=== PATIENT | female | born 1970 | race Caucasian/White ===

== ENCOUNTER 2019-04-15 14:02 | Observation (INO) | payer MEDICAID, SELFPAY ==
[2019-04-15 14:30] VITALS: BP 123/72; PULSE 74; RESP 17; TEMP 36.9; O2SAT 96
[2019-04-15 14:36] VITALS: BMI 28.3
[2019-04-15 14:53] VITALS: BMI 28.3
[2019-04-15 15:02] VITALS: PULSE 80
--- NOTE | 2019-04-15 15:35 | ECHOD_ITS ---
Reason For Study: TIA/CVA Procedure This was a 2D Doppler, Color Flow transthoracic echocardiogram. Exam performed portable in patient room. Left Ventricle Normal size and thickness. The estimated ejection fraction is 60 %. No evidence for diastolic dysfunction. No regional wall motion abnormalities noted. Right Ventricle Normal RV size. Normal systolic function. Atria Normal left atrium. Normal right atrium. No doppler evidence for ASD. Bubble contrast study negative for right to left interatrial shunt. Mitral Valve There is no mitral valve stenosis. No mitral valve insufficiency. Tricuspid Valve There is no tricuspid stenosis. Unable to estimate RV systolic pressure due to inadequate jet, pulmonary artery pressure probably normal. Aortic Valve Trisinus/trileaflet aortic valve. There is no aortic stenosis. No aortic valve insufficiency. Pulmonic Valve There is no pulmonic valvular stenosis. No pulmonic valve insufficiency. Great Vessels Normal aortic root. Pericardium/Pleural No pericardial effusion. Medication Performed a rapid injection of agitated mix of 9 cc saline and 1cc air to assess for atrial septal defect. MMode/2D Measurements & Calculations LVIDd: 3.7 cm IVSd: 0.71 cm Ao root diam: 2.9 cm LVIDs: 2.6 cm LVPWd: 0.90 cm RVDd: 3.2 cm FS: 30.1 % LAV(MOD-bp): 25.9 ml LVAd ap4: 20.6 cm2 SV(MOD-sp4): 33.3 ml LAV(MOD-bp) Indexed: 14.4 ml/m2 EDV(MOD-sp4): 52.7 ml LAV(MOD-sp2): 24.0 ml EDV(sp4-el): 54.4 ml LAV(MOD-sp4): 24.8 ml LVAs ap4: 11.3 cm2 ESV(MOD-sp4): 19.4 ml ESV(sp4-el): 19.7 ml EF(MOD-sp4): 63.2 % EF(sp4-el): 63.7 % SV(sp4-el): 34.6 ml LA A4 area: 11.5 cm2 LA dimension(2D): 3.1 cm RA A4 area: 7.6 cm2 Time Measurements MV dec time: 0.24 sec Doppler Measurements & Calculations MV E max yovani: 83.7 cm/sec Lat Peak E' Yovani: 13.6 cm/sec Med Peak E' Yovani: 10.2 cm/sec MV A max yovani: 87.5 cm/sec E/E' lat: 6.2 E/E' med: 8.2 MV E/A: 0.96 Ao V2 max: 150.6 cm/sec LV V1 max: 143.1 cm/sec PA V2 max: 108.3 cm/sec Ao max P.1 mmHg LV V1 max P.2 mmHg TR max yovani: 252.7 cm/sec TR max P.5 mmHg Interpretation Summary The estimated ejection fraction is 60 %. No evidence for diastolic dysfunction. No doppler evidence for ASD. Bubble contrast study negative for right to left interatrial shunt. Ordering Physician: Madi Watkins Referring Physician: DONAVON ARIAS Performed By: Amaya Maki RDCS
--- NOTE | 2019-04-15 15:35 | MRI_ITS ---
STUDY: MRI BRAIN WITHOUT CONTRAST REASON FOR EXAM: Female, 48 years old. CVA TECHNIQUE: Standardized multiplanar fat and water weighted pulse sequences were obtained. COMPARISON: None. FINDINGS: Normal size of the ventricles and extra-axial spaces for the patient's age. Normal white matter tracts of the supratentorial brain. Normal bilateral basal ganglia. Normal thalami. There is no extra-axial fluid accumulation. Normal flow voids within the major intracranial circulation suggesting patency by spin echo criteria. Normal sella turcica, pituitary gland, infundibular stalk, optic chiasm and hypothalamus. Normal tectal plate and pineal gland. Normal midbrain, filomena and medulla. Normal cerebellum. Normal basal cisterns. Normal bilateral temporal bones. Normal bilateral internal auditory canals. No demonstrated orbital abnormality, within the constraints of a routine brain study. Normal visualized paranasal sinuses. Normal calvarium and skull base. Normal visualized soft tissue structures. Normal visualized upper cervical spine. MRI/Brain without Contrast IMPRESSION: Normal unenhanced MRI of the brain. Electronically Signed: Michael Garrison MD at 21:18 EDT , Service support ,
--- NOTE | 2019-04-15 15:36 | PCM.HP.STD ---
Problem List (1) Type 2 diabetes mellitus Status: Chronic (2) Hypothyroidism Status: Chronic (3) Hypertension Status: Chronic History of Present Illness Date of Admission: 04/15/19 Chief Complaint: Left-sided weakness. The patient is a 48 year old F who presents from [place] in hospital due to recurrent left-sided weakness and numbness. Patient reports on Saturday and Saturday morning she woke up and noticed her left upper extremity and left lower extremity was numb and she could not lift them on her own. She states this lasted a few hours and then resolved on its own. She had no symptoms on Saturday this week. This morning she woke up and again had left-sided weakness and numbness. She reports her blood sugar was 60 at that time and her helped her drink some chocolate milk. She states her symptoms persisted despite drinking milk. She states given the recurrence of symptoms, she called the squad. She states her symptoms had resolved by the time the squad picked her up and she was able to walk out to EMS. She denies speech changes, vision changes. She is currently symptom-free. Denies history of stroke. She has a past medical history of type 2 diabetes mellitus, hypertension, hyperlipidemia, hypothyroidism. Past Medical History Past Medical History (Chronic Problems): Chronic Problems Type 2 diabetes mellitus (Chronic) Hypothyroidism (Chronic) Hypertension (Chronic) Allergies cream cheese Allergy (Uncoded 04/15/19 14:51) Hives Home Medications: Ambulatory Orders Medication Instructions Recorded Acetaminophen [8Hr Arthritis Pain 650 mg PO BID PRN 04/15/19 Relief] Cyclobenzaprine HCl 10 mg PO TID PRN 04/15/19 Gabapentin [Neurontin] 300 mg PO TID PRN PRN 04/15/19 Insulin Aspart [Novolog Vial] 15 units SUBCUT TIDCM 04/15/19 Insulin Glargine,Hum.rec.anlog 30 unit SUBCUT 2100 04/15/19 [Basaglar Kwikpen U-100] Levothyroxine [Synthroid] 125 mcg PO DAILY 04/15/19 Lisinopril 5 mg PO DAILY 04/15/19 Rosuvastatin Calcium [Crestor] 10 mg PO QHS 04/15/19 Surgical History: - - Hysterectomy, cholecystectomy, naval cyst removal, lung stapling secondary to recurrent pneumothorax. 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 Lives: Spouse/ Significant Other Smoking Status: Current every day smoker Tobacco Use: Cigarettes Alcohol: None Drugs: None - *Family History Maternal History Items: Heart Disease - Status post CABG Paternal History Items: - - from colon cancer Review of Systems Constitutional: Denies: Chills, Fever, Weight Change HEENT: Denies: Head Aches, Sinus Congestion, Sinus Drainage Cardiovascular: Denies: Chest Pain, Palpitations Respiratory: Denies: Cough, Shortness of breath at rest, Sputum production Gastrointestinal: Denies: Abdominal Pain, Nausea, Vomiting Genitourinary: Denies: Dysuria Musculoskeletal: Denies: Joint Pain, Joint Tenderness Skin: Denies: Rash, Wounds Neurological: Reports: Numbness, - - Intermittent left-sided weakness and numbness.. Denies: Double vision, Slurred speech, Tingling Psychiatric: Denies: Anxiety, Depression, Homicidal Ideations, Suicidal Ideations Hematologic/ Lymphatic: Denies: Easy Bruising, Easy Bleeding VTE Information - Inpt Only VTE Present on Admission: No VTE Mechan Device Prophylaxis: SCD's VTE Pharm Prophylaxis ordered?: No Reason prophylaxis not ordered:: Treatment Not Indicated - Physical Exam General: Alert, Oriented x3, Cooperative HEENT: Atraumatic, PERRLA, EOMI, Normocephalic Neck: Supple, No JVD, Negative Carotid Bruits Lungs: Clear to auscultation, Normal air movement Cardiovascular: Regular rate, Regular Rhythm, Normal S1, Normal S2, No murmurs Abdomen: Bowel Sounds Present, Soft, Non Tender, Non-Distended Extremities: No clubbing, No cyanosis, No edema, Capillary Refill Less than 3 Seconds Skin: No rashes, No breakdown Musculoskeletal: No Tenderness to Palpation of Joints or Extremities Neurological: Cranial nerves II-XII grossly intact, Neuro grossly intact Psych/Mental Status: Normal Affect, Appropriate Vital Signs Temp Pulse Resp BP Pulse Ox 98.4 F 80 17 123/72 H 96 04/15/19 14:30 04/15/19 15:02 04/15/19 14:30 04/15/19 14:30 04/15/19 14:30 Oxygen Delivery Method Room Air Weight: 165 lb Body Mass Index (BMI) 28.3 Assessment/Plan 1. Intermittent left-sided weakness, rule out CVA-CT of head at outside facility reported to be normal. Troponin negative. PT/OT/ST. Obtain MRI of brain, MRA of head and neck. Lipid panel in a.m. Obtain echocardiogram. Neuro consult. Aspirin, statin. 2. Type 2 diabetes [id number] ACHS with sliding scale insulin. Continue home Lantus regimen. 3. Hypertension-stable, continue home lisinopril regimen. 4. Hyperlipidemia-continue statin. 5. Hypothyroidism-continue Synthroid regimen. TSH at outside facility 0.18. Check T4. May need Synthroid decreased pending T4. 6. Tobacco dependence-current 1 PPD smoker. Encouraged cessation. DVT prophylaxis-SCDs This patient was seen by DONTE Holland under the supervision of Dr. Watkins.
[2019-04-15 15:37] VITALS: BMI 28.3
--- NOTE | 2019-04-15 16:02 | MRI_ITS ---
STUDY: MRA NECK WITHOUT CONTRAST REASON FOR EXAM: Female, 48 years old. CVA TECHNIQUE: Source images were obtained, MIPs were performed. The study was performed unenhanced. COMPARISON: None. FINDINGS: RIGHT CAROTID ARTERIES: Normal right common carotid artery (CCA). Normal right common carotid bulb. Normal origin of the right internal carotid (ICA) artery without a hemodynamically significant stenosis. Normal visualized cervical portion of the right internal carotid artery. Normal origin of the right external carotid artery (ECA). LEFT CAROTID ARTERIES: Normal left common carotid artery (CCA). Normal left common carotid bulb. Normal origin of the left internal carotid (ICA) artery without a hemodynamically significant stenosis. Normal visualized cervical portion of the left internal carotid artery. Normal origin of the left external carotid artery (ECA). VERTEBRAL ARTERIES: Normal antegrade flow within the bilateral vertebral artery without a hemodynamically significant stenosis. MRI/MRA Neck without Contrast IMPRESSION: Normal bilateral cervical carotid and vertebral arteries. Electronically Signed: Michael Garrison MD at 21:21 EDT , Service support ,
--- NOTE | 2019-04-15 16:02 | MRI_ITS ---
STUDY: MRA OF THE HEAD WITHOUT CONTRAST REASON FOR EXAM: Female, 48 years old. CVA TECHNIQUE: 3-D [id number] (TOF) imaging was performed with MIPs. The study was performed unenhanced. COMPARISON: None. FINDINGS: Normal bilateral petrous carotid arteries. Normal right cavernous carotid artery with a normal supraclinoid bifurcation. Normal left cavernous carotid artery with a normal supraclinoid bifurcation. Normal right A1 segments of the anterior cerebral artery. Normal left A1 segments of the anterior cerebral artery. Anterior communicating artery not visualized consistent with normal variant Normal bilateral A2 segments of the anterior cerebral arteries. Normal right M1 and M2 segments of the middle cerebral arteries, with a normal M1 bifurcation. Normal left M1 and M2 segments of the middle cerebral arteries, with a normal M1 bifurcation. Posterior communicating arteries are not visualized consistent with normal variant). Normal bilateral vertebral arteries. Normal basilar artery with a normal basilar bifurcation. The visualized bilateral superior cerebellar (SCA) arteries are normal. Normal bilateral P1, P2 and visualized P3 segments of the posterior cerebral arteries. There is no demonstrated aneurysm of the [place]. There is no major vessel occlusion or hemodynamically significant stenosis. There is no demonstrated abnormality of the visualized brain. MRI/MRA Head ONLY without Contrast IMPRESSION: Normal MRA of the head Electronically Signed: Michael Garrison MD at 21:19 EDT , Service support ,
[2019-04-15 17:00] LABS: Bedside Glucose 72 mg/dL (70-110)
[2019-04-15 17:20] LABS: T4 Free Direct 1.21 ng/dL (0.76-1.46)
[2019-04-15 18:15] VITALS: BP 128/69; PULSE 81; RESP 16; TEMP 36.8; O2SAT 96
[2019-04-15 19:08] LABS: Amphetamine Urine VISTA NEGATIVE (<1000 ng/mL); Barbiturate Urine VISTA NEGATIVE (< 200 ng/mL); Benzodiazepine Urine VISTA NEGATIVE (< 200 ng/mL); Cocaine Urine VISTA NEGATIVE (< 300 ng/mL); Ecstacy Urine VISTA NEGATIVE (< 500 ng/mL); Methadone Urine VISTA NEGATIVE (< 300 ng/mL); PCP Urine VISTA NEGATIVE (< 25 ng/mL); THC Urine VISTA NEGATIVE (< 50 ng/mL); Vista UDS pH Range 6
[2019-04-15] MEDS: LORazepam 1 MG Tablet 2 MG PO (19:41)
[2019-04-15] MEDS: Atorvastatin Calcium 20 MG Tablet PO (21:19)
[2019-04-15] MEDS: Insulin Lispro 100 UNIT/ML INSULN.PEN SC (21:20)
[2019-04-15 21:36] LABS: Bedside Glucose 408 mg/dL (70-110)
[2019-04-15 21:50] VITALS: PULSE 78
[2019-04-15 22:09] VITALS: BP 126/70; PULSE 89; RESP 16; TEMP 36.8; O2SAT 96
[2019-04-15 23:45] VITALS: BMI 28.3
[2019-04-16 02:55] VITALS: PULSE 72
[2019-04-16 03:15] VITALS: BP 115/65; PULSE 70; RESP 16; TEMP 36.6; O2SAT 98
[2019-04-16 06:33] LABS: Anion Gap 7 (5-15); BUN 13 mg/dL (7-18); BUN/Creat Ratio 26.6 RATIO (10-20); Calcium,Total 8.5 mg/dL (8.5-10.1); Chloride 108 mmol/L (98-107); Cholesterol 168 mg/dL (200); Creatinine, Serum 0.49 mg/dL (0.55-1.02); EST Glomerular Filtration Rate 144 mL/min (>60); Est Glom Filt Rate - Afr Amer 174 mL/min (>60); Estimated Creatinine Clearance 122.56 ml/min; Glucose 57 mg/dL (74-106); High Density Lipoprotein 53 mg/dL; Magnesium 2.2 mg/dL (1.6-2.6); Potassium 3.7 mmol/L (3.5-5.1); Sodium Level 142 mmol/L (136-145); Triglycerides 148 mg/dL; Very Low Density Lipoprotein 30 mg/dL (5-40)
[2019-04-16] MEDS: Levothyroxine 125 MCG Tablet PO (06:35)
[2019-04-16 07:00] VITALS: PULSE 73
[2019-04-16 08:01] LABS: Bedside Glucose 74 mg/dL (70-110)
[2019-04-16 09:15] VITALS: BP 129/69; PULSE 88; RESP 16; TEMP 36.3; O2SAT 94
[2019-04-16] MEDS: Lisinopril 5 MG Tablet PO (09:20)
--- NOTE | 2019-04-16 10:32 | CON.PCM_ITS ---
Reason for Consult Date of Consultation: 04/16/19 Reason for Consultation: left sided weakness History of Present Illness: The patient is a 48 year old right handed female now normal, admitted per notes as below. denies trigger, no new meds, recent illness, stress or insomnia. believes she may have been hypoglycemic however sugars were 60 during event. reports [id number] 8.7. The patient is a 48 year old F who presents from [place] in hospital due to recurrent left-sided weakness and numbness. Patient reports on Saturday and Saturday morning she woke up and noticed her left upper extremity and left lower extremity was numb and she could not lift them on her own. She states this lasted a few hours and then resolved on its own. She had no symptoms on Saturday this week. This morning she woke up and again had left-sided weakness and numbness. She reports her blood sugar was 60 at that time and her helped her drink some chocolate milk. She states her symptoms persisted despite drinking milk. She states given the recurrence of symptoms, she called the s quad. She states her symptoms had resolved by the time the squad picked her up and she was able to walk out to EMS. She denies speech changes, vision changes. She is currently symptom-free. Denies history of stroke. She has a past medical history of type 2 diabetes mellitus, hypertension, hyperlipidemia, hypothyroidism. Past Medical History Past Medical History (Chronic Problems): Chronic Problems Type 2 diabetes mellitus (Chronic) Hypothyroidism (Chronic) Hypertension (Chronic) Allergies cream cheese Allergy (Uncoded 04/15/19 14:51) Hives Home Medications: Ambulatory Orders Medication Instructions Recorded Acetaminophen [8Hr Arthritis Pain 650 mg PO BID PRN 04/15/19 Relief] Cyclobenzaprine HCl 10 mg PO TID PRN 04/15/19 Gabapentin [Neurontin] 300 mg PO TID PRN PRN 04/15/19 Insulin Aspart [Novolog Vial] 15 units SUBCUT TIDCM 04/15/19 Insulin Glargine,Hum.rec.anlog 30 unit SUBCUT 2100 04/15/19 [Basaglar Kwikpen U-100] Levothyroxine [Synthroid] 125 mcg PO DAILY 04/15/19 Lisinopril 5 mg PO DAILY 04/15/19 Rosuvastatin Calcium [Crestor] 10 mg PO QHS 04/15/19 Surgical History: - - Hysterectomy, cholecystectomy, naval cyst removal, lung stapling secondary to recurrent pneumothorax. 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 Lives: Spouse/ Significant Other Smoking Status: Current every day smoker Tobacco Use: Cigarettes Alcohol: None Drugs: None - *Family History Maternal History Items: Heart Disease - Status post CABG Paternal History Items: - - from colon cancer Review of Systems Constitutional: Denies: Chills, Fever, Weight Change HEENT: Denies: Head Aches, Sinus Congestion, Sinus Drainage Cardiovascular: Denies: Chest Pain, Palpitations Respiratory: Denies: Cough, Shortness of breath at rest, Sputum production Gastrointestinal: Denies: Abdominal Pain, Nausea, Vomiting Genitourinary: Denies: Dysuria Musculoskeletal: Denies: Joint Pain, Joint Tenderness Skin: Denies: Rash, Wounds Neurological: Denies: Numbness, Tingling, Focal weakness Psychiatric: Denies: Anxiety, Depression, Homicidal Ideations, Suicidal Ideat ions Hematologic/ Lymphatic: Denies: Easy Bruising, Easy Bleeding - Physical Exam General: Alert, Oriented x3, Cooperative HEENT: Atraumatic, PERRLA, EOMI, Normocephalic Neck: Supple, No JVD, Negative Carotid Bruits Lungs: Clear to auscultation, Normal air movement Cardiovascular: Regular rate, No murmurs Abdomen: Bowel Sounds Present, Soft, Non Tender Extremities: No edema, Capillary Refill Less than 3 Seconds Skin: No rashes, No breakdown Musculoskeletal: No Tenderness to Palpation of Joints or Extremities Neurological: Cranial nerves II-XII grossly intact Psych/Mental Status: Normal Affect, Appropriate Vital Signs Temp Pulse Resp BP Pulse Ox 36.3 C L 88 16 129/69 H 94 04/16/19 09:15 04/16/19 09:15 04/16/19 09:15 04/16/19 09:15 04/16/19 09:15 Oxygen Delivery Method Room Air Weight: 74.843 kg Body Mass Index (BMI) 28.3 Intake and Output for Last 24 Hours 04/14/19 04/15/19 04/16/19 23:59 23:59 23:59 Intake Total 550 / 550 50 / 50 Balance 550 / 550 50 / 50 Laboratory Tests Past 24 Hrs 04/15/19 04/15/19 04/16/19 16:35 18:40 05:25 Sodium 142 Potassium 3.7 Chloride 108 H Carbon Dioxide 27.0 Anion Gap 7 BUN 13 Creatinine 0.49 L Estim Creat Clear Calc 122.56 Est GFR (MDRD) Af Amer 174 Est GFR (MDRD) Non-Af 144 BUN/Creatinine Ratio 26.6 H Glucose 57 L Calcium 8.5 Magnesium 2.2 Triglycerides 148 Cholesterol 168 LDL Cholesterol 85 VLDL Cholesterol 30 HDL Cholesterol 53 Free T4 1.21 Urine Opiates Screen NEGATIVE Urine Methadone Screen NEGATIVE Ur Barbiturates Screen NEGATIVE Ur Phencyclidine Scrn NEGATIVE Ur Amphetamines Screen NEGATIVE U Methamphetamin-MDMA NEGATIVE U Benzodiazepines Scrn NEGATIVE Urine Cocaine Screen NEGATIVE U Cannabinoids Screen NEGATIVE Ur Drug Screen Comment POC Glucose 04/16/19 04/15/19 04/15/19 07:55 21:15 16:54 POC Glucose 74 408 H 72 Current Home Med List Medication Instructions Recorded Confirmed Type Acetaminophen [8Hr Arthritis Pain 650 mg PO BID PRN 04/15/19 04/15/19 History Relief] Cyclobenzaprine HCl 10 mg PO TID PRN 04/15/19 04/15/19 History Gabapentin [Neurontin] 300 mg PO TID PRN PRN 04/15/19 04/15/19 History Insulin Aspart [Novolog Vial] 15 units SUBCUT TIDCM 04/15/19 04/15/19 History Insulin Glargine,Hum.rec.anlog 30 unit SUBCUT 2100 04/15/19 04/15/19 History [Basaglar Kwikpen U-100] Levothyroxine [Synthroid] 125 mcg PO DAILY 04/15/19 04/15/19 History Lisinopril 5 mg PO DAILY 04/15/19 04/15/19 History Rosuvastatin Calcium [Crestor] 10 mg PO QHS 04/15/19 04/15/19 History Current Medications Generic Name Dose Route Start Last Admin Trade Name Freq PRN Reason Stop Dose Admin Acetaminophen 500 mg 04/15/19 15:51 Tylenol PO Q8H PRN PAIN SCORE 1-3/10 Atorvastatin Calcium 20 mg 04/15/19 22:00 04/15/19 21:19 Lipitor PO 20 mg QHS ADELSO Administration Cyclobenzaprine HCl 10 mg 04/15/19 22:00 Flexeril PO TID PRN .MUSCLE PAIN Dextrose 0 gm 04/15/19 15:35 D50w Syringe IV X1 PRN Hypoglycemia Protocol Gabapentin 300 mg 04/15/19 15:35 Neurontin PO TID PRN PRN nerve pain Glucagon 1 mg 04/15/19 15:35 IM .X1 PRN Hypoglycemia Insulin Glargine 30 units 04/15/19 21:00 04/15/19 21:20 Lantus ([facility]) SC 30 u 2100 ADELSO Administration Insulin Human Lispro 15 unit 04/15/19 17:00 04/16/19 07:57 Humalog Kwikpen ([facility]) SC Not Given 0800,1200,1700 ADELSO Insulin Human Lispro 0 unit 04/15/19 16:00 04/16/19 07:56 Humalog Kwikpen ([facility]) SC Not Given ACHS ADELSO Protocol Levothyroxine Sodium 125 mcg 04/16/19 06:00 04/16/19 06:35 Synthroid PO 125 mcg DAILY@0600 ADELSO Administration Lisinopril 5 mg 04/16/19 10:00 04/16/19 09:20 Zestril PO 5 mg DAILY ADELSO Administration Sodium Chloride 5 - 15 ml 04/15/19 15:40 IV UD PRN SALINE FLUSH mri reviewed, normal Assessment/Plan hypoglycemic event vs post-ictal, now normal. favor hypoglycemia, sugar of 60 is not severely low however this may represent a relatively low number for her no evidence neurologic injury ok to dc op eeg
--- NOTE | 2019-04-16 10:42 | CASEMGMT ---
SW did not complete a PHQ-9 with patient as per Neurologist she did not have a Stroke or TIA. Shayy BENTLEY MSW
[2019-04-16 11:50] LABS: Bedside Glucose 314 mg/dL (70-110)
--- NOTE | 2019-04-16 11:52 | DCINST_ITS ---
- Discharge Diagnoses Current Active Problems: Current Active and Chronic Problems Type 2 diabetes mellitus (Chronic) Hypothyroidism (Chronic) Hypertension (Chronic) You will use the following diet at home:: Calorie/Carbohydrate Controlled (specify 1200, 1400, etc) - 1600 eliseo / day, Cardiac Your food should be the consistency of: Regular Your liquids should be the consistency of: Regular/Thin Discharge Activity: Return to Normal Activity Allergies/Adverse Reactions: Allergies cream cheese Allergy (Uncoded 04/15/19 14:51) Hives Medications to take at Discharge Acetaminophen [8Hr Arthritis Pain Relief] 650 mg PO BID PRN 04/15/19 Cyclobenzaprine HCl 10 mg PO TID PRN 04/15/19 Gabapentin [Neurontin] 300 mg PO TID PRN PRN 04/15/19 Insulin Aspart [Novolog Vial] 15 units SUBCUT TIDCM 04/15/19 Levothyroxine [Synthroid] 125 mcg PO DAILY 04/15/19 Lisinopril 5 mg PO DAILY 04/15/19 Rosuvastatin Calcium [Crestor] 10 mg PO QHS 04/15/19 Insulin Glargine,Hum.rec.anlog [Basaglar Kwikpen U-100] 25 unit SUBCUT 2100 #0 04/16/19 Primary Care Physician: Chun Garcia MD [Primary Care Provider] - Please follow up with your Primary Care Physician in: 2 weeks Test Results: Test results from this visit will be discussed in further detail at your follow- up appointment, if applicable. Please Follow Up With: [place] [facility] When: 1 week Proposed Discharge Date: 04/16/19
--- NOTE | 2019-04-16 14:50 | DS.PCM_ITS ---
<Dontrell Phillips - Last Filed: 04/16/19 14:50> Discharge Date and Diagnosis Date of Admission: 04/15/19 Date of Discharge: 04/16/19 - Primary Discharge Diagnosis Left sided weakness 2/2 hypoglycemia Poorly controlled IDDM, unclear subtype Hypothyroidism HTN Nicotine abuse - Secondary Discharge Diagnosis Chronic Problems Type 2 diabetes mellitus (Chronic) Hypothyroidism (Chronic) Hypertension (Chronic) Hospital Course and Treatment Imaging Results: IMAGING: MRI/Brain without Contrast IMPRESSION: Normal unenhanced MRI of the brain. Echo: Interpretation Summary The estimated ejection fraction is 60 %. No evidence for diastolic dysfunction. No doppler evidence for ASD. Bubble contrast study negative for right to left interatrial shunt. MRI/MRA Head ONLY without Contrast IMPRESSION: Normal MRA of the head MRI/MRA Neck without Contrast IMPRESSION: Normal bilateral cervical carotid and vertebral arteries. Consults: Neuro - Steward Operations: None Procedures: 2-D Echocardiogram Summary of Care Provided: Hospital course: The patient is a 48 year old F with past medical history of insulin-dependent diabetes that had an acute onset after a lung surgery, hypertension, hyperlipidemia, nicotine abuse, hypothyroidism, who presented to the emergency room with complaints of left-sided weakness and numbness. She was unable to lift her upper and lower extremity and they both felt numb. It resolved about a few hours and then resolved after she drank some chocolate milk. In the morning her blood sugar was 60. She went to [facility] and had a CT of the brain which was negative. She was transferred to [facility] with concern for CVA. She was admitted for CVA work-up. She underwent an MRI of the brain which was negative for stroke, MRA of the head and neck which were unremarkable, and echocardiogram which was unremarkable. Tox screen was normal, T4 was normal. Blood sugar was highly fluctuant initially 72 which waiting up to over 400. She is provided with sliding scale and her long-acting Lantus. CVA was ruled out with the unremarkable imaging. Neuro saw the patient and noted that blood sugar of 60 may be hypoglycemic for this patient. The patient's Lantus was decreased. 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 She already checks her blood sugar 4x per day at home. She will also need to follow-up with her PCP in 1 to 2 weeks. Patient did note that she had been having episodes of morning hypoglycemia frequently, and this was felt to be the most likely etiology for her symptoms. She was discharged home in stable condition. This patient was seen by Dontrell Phillips PA-C under the supervision of Doctor Tahmina. [] - Physical Exam General: Alert, Oriented x3, Cooperative HEENT: Atraumatic, PERRLA, EOMI, Normocephalic Neck: Supple, No JVD, Negative Carotid Bruits Lungs: Clear to auscultation, Normal air movement Cardiovascular: Regular rate, No murmurs Abdomen: Bowel Sounds Present, Soft, Non Tender Extremities: No edema, Capillary Refill Less than 3 Seconds Skin: No rashes, No breakdown Musculoskeletal: No Tenderness to Palpation of Joints or Extremities Neurological: Cranial nerves II-XII grossly intact Psych/Mental Status: Normal Affect, Appropriate, Alert and oriented to time, place, person, mood and affect Vital Signs Temp Pulse Resp BP Pulse Ox 97.3 F L 88 16 129/69 H 94 04/16/19 09:15 04/16/19 09:15 04/16/19 09:15 04/16/19 09:15 04/16/19 09:15 Oxygen Delivery Method Room Air Weight: 165 lb Body Mass Index (BMI) 28.3 Intake and Output for Last 24 Hours 04/14/19 04/15/19 04/16/19 23:59 23:59 23:59 Intake Total 550 / 550 650 / 650 Balance 550 / 550 650 / 650 Laboratory Tests Past 24 Hrs 04/15/19 04/15/19 04/16/19 16:35 18:40 05:25 Sodium 142 Potassium 3.7 Chloride 108 H Carbon Dioxide 27.0 Anion Gap 7 BUN 13 Creatinine 0.49 L Estim Creat Clear Calc 122.56 Est GFR (MDRD) Af Amer 174 Est GFR (MDRD) Non-Af 144 BUN/Creatinine Ratio 26.6 H Glucose 57 L Calcium 8.5 Magnesium 2.2 Triglycerides 148 Cholesterol 168 LDL Cholesterol 85 VLDL Cholesterol 30 HDL Cholesterol 53 Free T4 1.21 Urine Opiates Screen NEGATIVE Urine Methadone Screen NEGATIVE Ur Barbiturates Screen NEGATIVE Ur Phencyclidine Scrn NEGATIVE Ur Amphetamines Screen NEGATIVE U Methamphetamin-MDMA NEGATIVE U Benzodiazepines Scrn NEGATIVE Urine Cocaine Screen NEGATIVE U Cannabinoids Screen NEGATIVE Ur Drug Screen Comment POC Glucose 04/16/19 04/16/19 04/15/19 11:47 07:55 21:15 POC Glucose 314 H 74 408 H 04/15/19 16:54 POC Glucose 72 Discharge Diet: Low fat/ Low Cholesterol, 1600 Calorie Control Diet, 2000 mg Sodium Diet Discharge Activity: Return to Normal Activity Home Medications: Medications to take at Discharge Acetaminophen [8Hr Arthritis Pain Relief] 650 mg PO BID PRN 04/15/19 Cyclobenzaprine HCl 10 mg PO TID PRN 04/15/19 Gabapentin [Neurontin] 300 mg PO TID PRN PRN 04/15/19 Insulin Aspart [Novolog Vial] 15 units SUBCUT TIDCM 04/15/19 Levothyroxine [Synthroid] 125 mcg PO DAILY 04/15/19 Lisinopril 5 mg PO DAILY 04/15/19 Rosuvastatin Calcium [Crestor] 10 mg PO QHS 04/15/19 Insulin Glargine,Hum.rec.anlog [Basaglar Kwikpen U-100] 25 unit SUBCUT 2100 #0 04/16/19 Primary Care Physician: Chun Garcia MD [Primary Care Provider] - Please follow up with your Primary Care Physician in: 2 weeks Please Follow Up With: [place] [facility] When: 1 week Disposition: Home Minutes spent on discharge:: 35 Patient Condition:: Stable Medical Necessity - Tobacco Use Smoking Status: Current every day smoker Tobacco Use: Cigarettes Meaningful Use Info Meaningful Use Diagnoses (Choose all that apply): None applicable <Daren Martel - Last Filed: 04/16/19 15:15> Discharge Date and Diagnosis - Secondary Discharge Diagnosis Chronic Problems Type 2 diabetes mellitus (Chronic) Hypothyroidism (Chronic) Hypertension (Chronic) Hospital Course and Treatment Operations: None Procedures: 2-D Echocardiogram Summary of Care Provided: Patient seen and examined independently. Data reviewed. I agree with the above note by the physician drafter assistant. The patient is a 48 year old F presents with acute onset of left-sided weakness. Patient stated symptoms last about 15 minutes. Patient noted that her blood sugar was 60. Patient states that she typically gets symptomatic when her blood sugar gets to around 70s. Patient did drink some chocolate milk as well. Patient was seen at the outside hospital and concern was for TIA as patient was having some other episodes. Patient presented here and underwent neurologic work-up, including MRIs that were unremarkable. It is my feeling that her symptoms were associated with relative hypoglycemia in a patient who has been poorly controlled.. Patient states that her hemoglobin A1c has been in the 12 range in the past. Is unclear if she is just much more symptomatic with marginal blood sugars because of her previously uncontrolled state. But in the absence of any acute stroke do not feel is necessary to do any further evaluation at this time. Patient advised, however, that if she does have recurrent symptoms then to be reevaluated. [] - Physical Exam General: Alert, Cooperative HEENT: Atraumatic, Normocephalic Neurological: Motor Exam 5/5 strength throughout Vital Signs Temp Pulse Resp BP Pulse Ox 36.3 C L 88 16 129/69 H 94 04/16/19 09:15 04/16/19 09:15 04/16/19 09:15 04/16/19 09:15 04/16/19 09:15 Oxygen Delivery Method Room Air Weight: 74.843 kg Body Mass Index (BMI) 28.3 Intake and Output for Last 24 Hours 04/14/19 04/15/19 04/16/19 23:59 23:59 23:59 Intake Total 550 / 550 650 / 650 Balance 550 / 550 650 / 650 Laboratory Tests Past 24 Hrs 04/15/19 04/15/19 04/16/19 16:35 18:40 05:25 Sodium 142 Potassium 3.7 Chloride 108 H Carbon Dioxide 27.0 Anion Gap 7 BUN 13 Creatinine 0.49 L Estim Creat Clear Calc 122.56 Est GFR (MDRD) Af Amer 174 Est GFR (MDRD) Non-Af 144 BUN/Creatinine Ratio 26.6 H Glucose 57 L Calcium 8.5 Magnesium 2.2 Triglycerides 148 Cholesterol 168 LDL Cholesterol 85 VLDL Cholesterol 30 HDL Cholesterol 53 Free T4 1.21 Urine Opiates Screen NEGATIVE Urine Methadone Screen NEGATIVE Ur Barbiturates Screen NEGATIVE Ur Phencyclidine Scrn NEGATIVE Ur Amphetamines Screen NEGATIVE U Methamphetamin-MDMA NEGATIVE U Benzodiazepines Scrn NEGATIVE Urine Cocaine Screen NEGATIVE U Cannabinoids Screen NEGATIVE Ur Drug Screen Comment POC Glucose 04/16/19 04/16/19 04/15/19 11:47 07:55 21:15 POC Glucose 314 H 74 408 H 04/15/19 16:54 POC Glucose 72 Discharge Activity: Return to Normal Activity Disposition: Home Minutes spent on discharge:: 35 Patient Condition:: Stable Medical Necessity - Tobacco Use Smoking Status: Current every day smoker Meaningful Use Info Meaningful Use Diagnoses (Choose all that apply): None applicable Code Visit OBSV E&M: 08679 Observation care discharge
== END 2019-04-16 11:53 | disposition home or self-care (01) ==
PROVIDERS: Nurse Practitioner Family; Admitting Provider Internal Medicine; Family Provider Family Medicine; PCP Family Medicine; Referring Provider Internal Medicine
DX: E11.649 Type 2 diabetes mellitus with hypoglycemia without coma (principal); E11.65 Type 2 diabetes mellitus with hyperglycemia; R53.1 Weakness; E03.9 Hypothyroidism, unspecified; I10 Essential (primary) hypertension; E78.5 Hyperlipidemia, unspecified; F40.240 Claustrophobia; F17.210 Nicotine dependence, cigarettes, uncomplicated; Z79.899 Other long term (current) drug therapy; Z79.4 Long term (current) use of insulin
CPT/HCPCS: 36415; 70544; 70547; 70551; 80048; 80061; 80307; 82962; 83735; 84439; 92610; 93306; 99218; 99406; A4216; G0378; G0379

== ENCOUNTER → 2023-03-04 | Outpatient (CLI) | payer MEDICAID, SELFPAY ==
[2023-03-04 14:25] LABS: ALB/GLOB Ratio 0.9 RATIO (0.9-2.4); AST(SGOT) 5 U/L (15-37); Alanine Aminotransfer ALT/SGPT 11 U/L (13-56); Albumin, Serum 3.7 g/dL (3.2-5.0); Alkaline Phosphatase 120 U/L (45-117); Anion Gap 8 (5-15); BUN 17 mg/dL (7-18); BUN/Creat Ratio 19.5 RATIO (10-20); Calcium,Total 9.2 mg/dL (8.5-10.1); Chloride 106 mmol/L (98-107); Cholesterol 151 mg/dL (200); Creatinine, Serum 0.87 mg/dL (0.55-1.02); EST Glomerular Filtration Rate 72 mL/min (>60); Est Glom Filt Rate - Afr Amer 88 mL/min (>60); Globulin 4.1 g/dL (2.2-4.2); Glucose 181 mg/dL (74-106); High Density Lipoprotein 59 mg/dL; Potassium 3.7 mmol/L (3.5-5.1); Protein, Total 7.8 g/dL (6.4-8.2); Sodium Level 138 mmol/L (136-145); T4 Free Direct 1.82 ng/dL (0.76-1.46); Thyroid Stim Hormone (TSH) 0.02 uIU/mL (0.358-3.74); Triglycerides 101 mg/dL; Very Low Density Lipoprotein 20 mg/dL (5-40)
[2023-03-04 14:48] LABS: Microalbumin,Random Urine 71.4 mg/L (NO RANGE EST.); Microalbumin:Creatinine Ratio 33.1 mg/g CRE (<30 mg/g CRE)
[2023-03-04 20:58] LABS: Vitamin D,25 Hydroxy 30.1 ng/mL
== END | disposition home or self-care (01) ==
LOC: LAB 12:38
PROVIDERS: PCP Family Medicine; Referring Provider Nurse Practitioner Family; Visit Provider Nurse Practitioner Family
DX: E03.9 Hypothyroidism, unspecified (principal); E11.9 Type 2 diabetes mellitus without complications
CPT/HCPCS: 36415; 80053; 80061; 82043; 82306; 82570; 84439; 84443

== ENCOUNTER → 2023-06-17 | Outpatient (CLI) | payer MEDICAID, SELFPAY ==
[2023-06-17 11:21] LABS: Absolute Lymphocyte Count 3.41 X10^3/uL (0.83-4.51); Absolute Neutrophil Count 5.6 X10^3/uL (2.0-7.7); Basophil# 0.08 X10^3/uL; Basophil% 0.8 % (0-1); Eosinophil# 0.36 X10^3/uL; Eosinophils% 3.6 % (0-5); Hematocrit 45.5 % (37-47); Hemoglobin 14.9 g/dL (12.0-15.0); Lymphocyte # 3.41 X10^3/ul (0.83-4.51); Lymphocyte % 33.9 % (19-41); Mean Corp Hgb Conc 32.7 g/dL (32-36); Mean Corpuscular Hgb 30.5 pg (27.0-32.0); Mean Platelet Vol. 9.2 fl (6.2-12.0); NRBC Flagged by Analyzer 0 % (0-5); Neutrophil # 5.59 X10^3/uL (2.7-7.7); Neutrophil % 55.4 % (47-70); Platelet Count 350 K/mm3 (150-450); RBC Distribution Width CV 13.2 % (11.6-14.6); RBC Distribution Width SD 45.1 fl (35.1-43.9); Red Blood Count 4.89 M/mm3 (4.2-5.4); White Blood Count 10.1 K/mm3 (4.4-11.0)
[2023-06-17 12:07] LABS: Hemoglobin A1c 7.5 % (3.8-5.6)
[2023-06-17 12:11] LABS: T4 Free Direct 1.29 ng/dL (0.76-1.46); Thyroid Stim Hormone (TSH) 1.99 uIU/mL (0.358-3.74)
== END | disposition home or self-care (01) ==
LOC: LAB 10:20
PROVIDERS: PCP Family Medicine; Referring Provider Nurse Practitioner Family; Visit Provider Nurse Practitioner Family
DX: E03.9 Hypothyroidism, unspecified (principal); E11.9 Type 2 diabetes mellitus without complications
CPT/HCPCS: 36415; 83036; 84439; 84443; 85025

== ENCOUNTER → 2023-12-19 | Outpatient (CLI) | payer MEDICAID, SELFPAY ==
[2023-12-19 11:31] LABS: Vitamin D,25 Hydroxy 37.8 ng/mL
[2023-12-19 11:45] LABS: AST(SGOT) 9 U/L (15-37); Alanine Aminotransfer ALT/SGPT 14 U/L (13-56); Albumin, Serum 3.7 g/dL (3.2-5.0); Alkaline Phosphatase 114 U/L (45-117); Anion Gap 6 (5-15); BUN 15 mg/dL (7-18); BUN/Creat Ratio 20.5 RATIO (10-20); Calcium,Total 9.3 mg/dL (8.5-10.1); Chloride 107 mmol/L (98-107); Cholesterol 157 mg/dL (200); Creatinine, Serum 0.73 mg/dL (0.55-1.02); EST Glomerular Filtration Rate 89 mL/min (>60); Est Glom Filt Rate - Afr Amer 107 mL/min (>60); Globulin 3.8 g/dL (2.2-4.2); Glucose 97 mg/dL (74-106); High Density Lipoprotein 69 mg/dL; Potassium 4.1 mmol/L (3.5-5.1); Protein, Total 7.5 g/dL (6.4-8.2); Sodium Level 140 mmol/L (136-145); T4 Free Direct 1.42 ng/dL (0.76-1.46); Thyroid Stim Hormone (TSH) 2.58 uIU/mL (0.358-3.74); Triglycerides 91 mg/dL; Very Low Density Lipoprotein 18 mg/dL (5-40)
[2023-12-20 19:35] LABS: Microalbumin:Creatinine Ratio 113.4 mg/g CRE (<30 mg/g CRE)
[2023-12-22 13:07] LABS: C-Peptide < 0.1 ng/mL (1.1-4.4)
== END | disposition home or self-care (01) ==
PROVIDERS: PCP Family Medicine; Referring Provider Nurse Practitioner Family; Visit Provider Nurse Practitioner Family
DX: E11.65 Type 2 diabetes mellitus with hyperglycemia (principal); Z79.4 Long term (current) use of insulin; E03.9 Hypothyroidism, unspecified
CPT/HCPCS: 36415; 80053; 80061; 82043; 82306; 82570; 83036; 84439; 84443; 84681